=== PATIENT | female | born 1980 | race Caucasian/White ===

== ENCOUNTER 2017-09-28 15:09 | Emergency (ER) | payer OTHER ==
[~2017-09-28] VITALS: Ht 165.1 cm; Wt 86.2 kg
[2017-09-28] MEDS ORDERED: PRENATAL PO (15:22)
[2017-09-28] MEDS ORDERED: [UNRECOGNIZED DRUG - OTHER] (15:23)
[2017-09-28 15:34] VITALS: BP 156/85
== END 2017-09-28 15:35 | disposition home or self-care (01) ==
LOC: M.ERS 15:09
DX: O9A.211 Injury, poisoning and certain other consequences of external causes complicating pregnancy, first trimester (principal); Z3A.01 Less than 8 weeks gestation of pregnancy; Z88.1 Allergy status to other antibiotic agents; Z98.890 Other specified postprocedural states; V89.2XXA Person injured in unspecified motor-vehicle accident, traffic, initial encounter; Y93.89 Activity, other specified; Y92.89 Other specified places as the place of occurrence of the external cause; Y99.8 Other external cause status